=== PATIENT | male | born 1995 | race Caucasian/White ===

== ENCOUNTER 2018-12-06 00:33 | Emergency (ER) | payer OTHER ==
[~2018-12-06] VITALS: Ht 177.8 cm; Wt 104.3 kg
[~2018-12-06 00:33] MED LIST: CETI10; CETI1SY; CODACEE120 PO; DIPATR PO; ERYES400 PO; HYDACE5 PO; IBUP600 PO; NEOCOLOTSU OT; PROM25 PO; SULTRIDS PO; ZITHROMAX
== END 2018-12-06 04:00 | disposition home or self-care (01) ==
LOC: ER 00:33
DX: S80.12XA Contusion of left lower leg, initial encounter (principal); S70.312A Abrasion, left thigh, initial encounter; S90.512A Abrasion, left ankle, initial encounter; J45.909 Unspecified asthma, uncomplicated; F20.9 Schizophrenia, unspecified; Z88.0 Allergy status to penicillin; V40.5XXA Car driver injured in collision with pedestrian or animal in traffic accident, initial encounter
CPT/HCPCS: 73502; 73552; 73564; 99284-25